=== PATIENT | female | born 1960 | race Caucasian/White ===

== ENCOUNTER 2021-01-08 14:24 | Emergency (ER) | payer BC ==
[2021-01-08 15:26] LABS: HEMOGLOBIN 14.2 gm/dl (12.3-15.3); RED BLOOD COUNT 4.47 M/UL (4.00-5.10); WHITE BLOOD COUNT 9.1 K/UL (4.5-11.0)
[2021-01-08 15:57] LABS: BUN/CREATININE RATIO 28 (0-10)
== END 2021-01-08 22:05 | disposition home or self-care (01) ==
LOC: ER1 14:24
PROVIDERS: Internal Medicine
DX: R41.0 Disorientation, unspecified (principal); E03.9 Hypothyroidism, unspecified
CPT/HCPCS: 70450; 70496; 70498; 80053; 84484; 85025; 85610; 85730; 93005; 96374; 99285; J1200; Q9967

== ENCOUNTER → 2021-06-29 | Outpatient (CLI) | payer BC | LOC: KOH-I 11:36 | DX: J20.9 Acute bronchitis, unspecified (principal); Z20.828 Contact with and (suspected) exposure to other viral communicable diseases; Z88.1 Allergy status to other antibiotic agents; Z88.2 Allergy status to sulfonamides | CPT/HCPCS: 71046 ==